=== PATIENT | female | born 1970 | race Caucasian/White ===

== ENCOUNTER 2017-04-22 20:16 | Emergency (ER) | payer OTHER ==
[~2017-04-22] VITALS: Ht 167.6 cm; Wt 113.4 kg
--- NOTE | 2017-04-22 20:20 | NUR ---
TAZ Pearce in hallway examining patient
--- NOTE | 2017-04-22 20:20 | NUR ---
Patient to [facility] for evaluation. Side rails up. Report given to AISSATOU Gates.
[2017-04-22] MEDS ORDERED: ACETAMINOPHEN 500 MG TABLET PO ONE (20:30)
--- NOTE | 2017-04-22 20:30 | NUR ---
Pt came to ED by self with c/o 8/10 pain in right pinky toe x3 days. Pt states, "I think I may have broke my toe. I slammed it into a chair." Mild swelling to right pinky toe noted. NKA. Denies any past medical history. Denies SOB, CP, N/V.
[2017-04-22 20:32] VITALS: BP 127/78; PULSE 79; RESP 18; TEMP 98.3; O2SAT 98
[2017-04-22 21:09] VITALS: BP 125/76; PULSE 78; RESP 18; TEMP 98.6; O2SAT 100
--- NOTE | 2017-04-22 21:09 | NUR ---
Patient given written and verbal discharge instructions and verbalizes understanding. ER ORDER EDITOR Adam discussed with patient the results and treatment provided. Patient in stable condition. Rx of Motrin given. Med/Surg shoe and underarm crutches provided to pt. Patient educated on pain management and to follow up with PMD. Pain Scale 2/10. Opportunity for questions provided and answered.
== END 2017-04-22 21:09 | disposition home or self-care (01) ==
LOC: SED 20:16
DX: S92.514A Nondisplaced fracture of proximal phalanx of right lesser toe(s), initial encounter for closed fracture (principal); W23.0XXA Caught, crushed, jammed, or pinched between moving objects, initial encounter; Y93.89 Activity, other specified; Y92.89 Other specified places as the place of occurrence of the external cause; Y99.8 Other external cause status
CPT/HCPCS: 99284